=== PATIENT | female | born 1950 ===

== ENCOUNTER 2024-07-20 16:25 | Emergency (ER) | payer MEDICARE, SELFPAY ==
[2024-07-20 16:39] VITALS: BP 151/84; PULSE 62; RESP 18; TEMP 36.7; O2SAT 95; BMI 27.4
--- NOTE | 2024-07-20 16:44 | USR_ITS ---
PROCEDURE INFORMATION: Exam: US Duplex Right Lower Extremity Veins, Limited Exam date and time: 07/20/2024 5:12 PM Age: 74 years old Clinical indication: Pain; Leg, lower; Right; Additional info: Right-sided calf pain and swelling. Concern for dvt TECHNIQUE: Imaging protocol: Real-time duplex ultrasound of the right extremity with 2-D sams scale, color Doppler flow and spectral waveform analysis including responses to compression and other maneuvers (when performed) with image documentation. Limited exam was focused on the right lower extremity veins. COMPARISON: CR XR knee RT 3V* [id number] 07/20/2024 5:04 PM FINDINGS: Right deep veins: Unremarkable. The common femoral, femoral, proximal profunda femoral and popliteal veins are patent without thrombus. Normal Doppler waveforms. Normal compressibility and/or augmentation response. 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 Superficial veins: Greater saphenous vein at the saphenofemoral junction is patent without thrombus. Soft tissues: Unremarkable. US/[place] [id number] IMPRESSION: No evidence of deep vein thrombosis. 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
--- NOTE | 2024-07-20 16:44 | XRR_ITS ---
PROCEDURE INFORMATION: Exam: XR Right Knee Exam date and time: 07/20/2024 5:04 PM Age: 74 years old Clinical indication: Pain; Knee; Right; Additional info: Knee pain and swelling TECHNIQUE: Imaging protocol: Radiologic exam of the right knee. Views: 3 views. COMPARISON: No relevant prior studies available. FINDINGS: Bones/joints: Marked narrowing of the lateral compartment is seen with contiguous articular sclerosis and marginal circumferential spurring. Pion-ju-kfkuxgar osteoarthritic/degenerative spurring/changes noted also of the patellofemoral region. The lateral view is slightly rotated. The frontal projection best demonstrates a slight valgus angulation. Soft tissues: Normal. XR/XR knee RT 3V* [id number] IMPRESSION: 1. Markedly severe osteoarthritic/degenerative changes involving the lateral compartment and to a lesser degree patellofemoral regions. 2. Resultant slight valgus deformity knee also noted.
--- NOTE | 2024-07-20 16:44 | ED_ITS ---
HPI - Extremity Problem General: Chief complaint: Extremity Problem,Nontraumatic Stated complaint: right swollen leg Time Seen by Provider: 07/20/24 16:34 History of Present Illness: 74-year-old female who presents to the e mergency room with right calf and knee pain. She said is worse with ambulation. Is been going on for about a day now. She has a history of DVT in the past but she is not on any blood thinners any longer. She said this was after her surgery. No redness or warmth. She has pain in her calf. She also has swelling in her knee and some pain there. No redness there either. No chest pain. No shortness of breath. Vitals are normal on presentation. Related Data Previous Rx's ?Medication ?Instructions ?Recorded tramadol 50 mg tablet 50 mg PO Q8H PRN pain #10 ta bs 07/20/24 Allergies Allergy/AdvReac Type Severity Reaction Status Date / Time Sulfa (Sulfonamide Allergy ALGY-Rash Verified 07/20/24 16:43 Antibiotics) Review of Systems Narrative: Constitutional symptoms: Negative except as documented in HPI. Skin symptoms: Negative except as documented in HPI. Eye symptoms: Negative except as documented in HPI. ENMT symptoms: Negative except as documented in HPI. Respiratory symptoms: Negative except as documented in HPI. Cardiovascular symptoms: Negative except as documented in HPI. Gastrointestinal symptoms: Negative except as documented in HPI. Genitourinary symptoms: Negative except as documented in HPI. Musculoskeletal symptoms: Negative except as documented in HPI. Neurologic symptoms: Negative except as documented in HPI. Psychiatric symptoms: Negative except as documented in HPI. Endocrine symptoms: Negative except as documented in HPI. Physical Exam Narrative: EXAM NARRATIVE: General: Alert, no acute distress. Skin: warm and dry Head: Normocephalic Neck: Trachea midline Eye: Extraocular movements are intact. Ears, nose, mouth and throat: Oral mucosa moist Respiratory: Respirations are non-labored Musculoskeletal: Normal ROM. A bit of a effusion in the knee. She has pain in her calf but no obvious redness or swelling. Neurological: Alert and oriented, No focal neurological deficit observed. Psychiatric: Cooperative, appropriate mood & affect. Course Vital Signs: Vital signs: Vital Signs Temperature 98.1 F 07/20/24 16:39 Pulse Rate 62 07/20/24 16:39 Respiratory Rate 18 07/20/24 16:39 Blood Pressure 151/84 07/20/24 16:39 Pulse Oximetry 95 07/20/24 16:39 Oxygen Delivery Me thod Room Air 07/20/24 16:39 MDM - Extremity (Nontraumatic) Medical Decision Making X-ray of the right knee: Severe degenerative changes. No fractures. This was reviewed and interpreted by myself the emergency room physician. I also reviewed the radiology report. Ultrasound of the right lower extremity: No DVT. This was reviewed and interpreted by myself the emergency room physician. I also reviewed the radiology report. Assessment and plan: Degenerative changes of the knee. Knee effusion - Discharged home - Discussed plan with patient. Answered any questions. - Evaluation and treatment of this problem were appropriate in the emergency setting. Lab Data Radiology Impressions Knee X-Ray 07/20/24 16:44 IMPRESSION: 1. Markedly severe osteoarthritic/degenerative changes involving the lateral compartment and to a lesser degree patellofemoral regions. 2. Resultant slight valgus deformity knee also noted. All radiology interpretation(s) finalized by discharge Discharge Plan Discharge Patient Disposition: Home Clinical Impression: Degenerative arthritis of right knee, Effusion of knee Condition: Stable Prescriptions: New tramadol 50 mg tablet 50 mg PO Q8H PRN (Reason: pain) Qty: 10 0RF Discharge Orders: Discharge ED (Routine); Ordered 07/20/24 Ordered By: Nayana Hurt Referrals: Pete Henson MD [Physician] - (Please call for an appointment with Dr. Henson or the orthopedic doctor of your choosing.) Discharge Diet: Usual diet Discharge Activity: Increase activity as tolerated Patient Instructions: Opioid Safety, Pain Management Activity Restrictions/Additional Instructions: Thank you for choosing [facility] for your healthcare needs today. Please realize this is an emergency room and that we are providing you with a medical screening exam and this may not be complete and all inclusive of all the testing and or work up that you may need to determine your ailment or severity of your illness. You have been screened and evaluated and felt safe for discharge. Health conditions do change or evolve sometimes and as such it is important that you follow up with your Primary Doctor to be re checked, 3-5 days is a general good time frame for follow up. You are always welcome to return to the ED for re assessment if your symptoms are worsening or you have new concerns Print Language: Georgian Coding Level of Care Code ED Bereavement Program Coordinator for Dandre Robles
[2024-07-20 17:46] VITALS: BP 161/70; PULSE 71; O2SAT 93
== END 2024-07-20 17:47 | disposition home or self-care (01) ==
PROVIDERS: Emergency Provider Emergency Medicine
DX: M17.11 Unilateral primary osteoarthritis, right knee (principal); M25.461 Effusion, right knee; M79.604 Pain in right leg
CPT/HCPCS: 73562; 93971; 99283